=== PATIENT | male | born 1980 | race Caucasian/White ===

== ENCOUNTER 2024-06-30 13:51 | Outpatient (CLI) | payer OTHER, SELFPAY ==
[2024-06-30 19:09] LABS: Basophils Absolute Auto 0.1 K/mm3 (0.0-0.1); Eosinophils Percent Auto 0.6 % (0-4.4); Hematocrit 48.1 % (42.0-52.0); Hemoglobin 15.7 g/dL (14.0-18.0); Immature Granulocyte Absolute 0.01 K/mm3 (0.00-0.031); Immature Granulocyte Percent A 0.1 % (0-0.5); Lymphocytes Absolute Auto 2.21 K/mm3 (0.9-3.2); Lymphocytes Percent Auto 30.9 % (18.3-44.2); Mean Corpuscular HGB Conc 32.6 g/dl (32-36); Mean Corpuscular Hemoglobin 27.9 pg (26-34); Mean Corpuscular Volume 85.6 fl (80-100); Mean Platelet Volume 12.8 fl (7.4-10.4); Monocytes Absolute Auto 0.6 K/mm3 (0.1-0.6); Monocytes Percent Auto 7.7 % (2.6-8.5); Neutrophils Absolute Auto 4.3 K/mm3 (1.3-6.7); Neutrophils Percent Auto 59.7 % (45.5-73.1); Platelet Count Result 208 k/mm3 (150-375); Red Blood Count 5.62 M/mm3 (4.6-6.20); Red Cell Distribution Width 12.1 % (11.5-14.5); White Blood Count 7.2 K/mm3 (4.5-10.0)
[2024-06-30 19:11] LABS: Alanine Aminotransferase 33 U/L (6-50); Albumin Level 4.9 g/dL (3.5-5.1); Alkaline Phosphatase 57 U/L (38-126); Anion Gap 10 mmol/L (4-12); Aspartate Amino Transferase 42 U/L (17-59); Bilirubin,Total 0.8 mg/dL (0.2-1.3); Blood Urea Nitrogen 13 mg/dL (9-20); Calcium 9.4 mg/dL (8.4-10.2); Carbon Dioxide 29 mmol/L (22-30); Chloride 101 mmol/L (98-107); Cholesterol 194 mg/dL (0-200); Estimated Glomerular Filt Rate > 60; Glucose 85 mg/dL (65-110); HDL Direct 61 mg/dL; Potassium 4.4 mmol/L (3.4-5.0); Sodium 140 mmol/L (137-145); Triglycerides 46 mg/dL (<150)
[2024-06-30 19:22] LABS: LDL Cholesterol Direct 93 mg/dL
== END 2024-06-30 13:52 | disposition home or self-care (01) ==
LOC: ANHGOSHLAB 13:52
PROVIDERS: PCP Family Medicine; Visit Provider Family Medicine
DX: Z13.220 Encounter for screening for lipoid disorders (principal); Z13.29 Encounter for screening for other suspected endocrine disorder; Z13.228 Encounter for screening for other metabolic disorders; R53.83 Other fatigue
CPT/HCPCS: 36415; 80053; 80061; 84443; 85025

== ENCOUNTER 2024-09-08 12:53 | Outpatient (CLI) | payer OTHER, SELFPAY | END 2024-09-08 12:54 | disposition home or self-care (01) | LOC: ANHAUDASC 12:54 | PROVIDERS: PCP Family Medicine; Visit Provider Otolaryngology | DX: H90.42 Sensorineural hearing loss, unilateral, left ear, with unrestricted hearing on the contralateral side (principal); H93.12 Tinnitus, left ear | CPT/HCPCS: 92557; 92567 ==

== ENCOUNTER 2024-09-20 07:30 | Outpatient (CLI) | payer OTHER, SELFPAY ==
--- NOTE | ~2024-09-20 | MR_ITS ---
MRI of the brain Clinical History: Left tinnitus Technique: Axial and sagittal T1-weighted images were acquired. These were followed by axial T2-weigh nino, diffusion weighted, gradient, and FLAIR images. Thin cut coronal and axial T1-weighted and T2-we ighted images were performed through the internal auditory canals. Following intravenous administrati on of 16 cc MultiHance gadolinium, T1-weighted fat-sat imaging was performed through the brain in the axial and coronal planes. Thin cut T1-weighted postcontrast imaging was performed through the international account executive al auditory canals in the axial and coronal planes. Findings: There is no abnormal signal in the brain parenchyma. No acute infarct, intracranial hemorrh age, or mass lesion. Ventricles and subarachnoid spaces are unremarkable. Orbits are unremarkable. Paranasal sinuses and m astoid air cells are clear. Major intracranial flow voids are intact. No abnormal mass lesion seen at the internal auditory canals or cerebellopontine angle regions. Sagittal midline structures are intact. No abnormal postcontrast enhancement identified. IMPRESSION: Unremarkable exam. Reviewed, dictated and finalized at location . VERY RN IMPRESSION: Unremarkable exam.
== END 2024-09-20 07:31 | disposition home or self-care (01) ==
PROVIDERS: PCP Family Medicine; Visit Provider Otolaryngology
DX: H93.12 Tinnitus, left ear (principal); H90.42 Sensorineural hearing loss, unilateral, left ear, with unrestricted hearing on the contralateral side; D33.3 Benign neoplasm of cranial nerves
CPT/HCPCS: 70553; A9577

== ENCOUNTER 2025-01-12 09:27 | Outpatient (CLI) | payer OTHER, SELFPAY ==
--- OUTSIDE RECORDS SUMMARY | 2025-01-12 10:17 | XMS_ITS ---
Care Plan - [facility] Created on: January 12, 2025 AICHA TERRY Jones : 1980 Sex: Male Author Organization [facility] Address [address] [place] [address] Phone Care Team Providers Care Electrical Drafter Name Role Phone CATHERINE PETER DO [phone]
--- OUTSIDE RECORDS SUMMARY | 2025-01-12 10:17 | XMS_ITS ---
Author Organization [facility] Address [address] [place] [address] Phone Care Team Providers Care Day Care Center Director Name Role Phone CATHERINE PETER DO [phone] Plan of Treatment Findings Encounter Date Ordered follow-up visit as n eeded with an office visit if symptoms persist or worsen COVID SICK VISIT- NEW PATIENT with ROCIO CUELLAR [employer] OPERATOR-BC 11/21/2022 Last Documented On 3 3:56PM ; [facility] Ordered patient to call if k[place] develops COVID SICK VISIT- NEW PATIENT with ROCIO CUELLAR [facility] 11/21/2022 Last Documented On 3 3:56PM ; [facility] Ordered return to the clinic if condition worsens or new symptoms arise COVID SICK VISIT- NEW PATIENT with ROCIO CUELLAR [employer] OPERATOR-BC 11/21/2022 Last Documented On 3 3:56PM ; [facility] Instructions to patient Go to the emergency room if condition worsens Last Documented On 3 3:50PM ; [facility] Watch for signs/symptoms of infection Last Documented On 3 3:50PM ; [facility] Watch for signs/symptoms of infection, return to the clinic if seen Last Documented On 3 3:50PM ; [facility] Assessments Includes: Assessments for all patient encounters Findings Encounter Date Group A streptococcus: B hem olytic pharyngitis COVID SICK VISIT- NEW PATIENT with ROCIO CUELLAR [employer] OPERATOR-BC 11/21/2022 Last Documented On 3 3:56PM ; [facility] Instructions Includes: Instructions for all patient encounters Instructions to patient Go to the emergency room if condition worsens Last Documented On 3 3:50PM ; [facility] Watch for signs/symptoms of infection Last Documented On 3 3:50PM ; [facility] Watch for signs/symptoms of infection, return to the clinic if seen Last Documented On 3 3:50PM ; [facility] Medical Equipment - Implanted Devices Includes: Current and historical Devices No Medical Equipment Recorded Medications Includes: Current and historical Medications Current Medications (continue as prescribed) Zithromax Z-Bill 250 MG Oral Tablet 11/21/2022 Provider: ROCIO DUARTE Diagnosis: Streptococcal ph aryngitis as directed Last Documented On 3 3:56PM By ROCIO LINCOLN ; [facility] Escitalopram Oxalate 10 MG Oral Tablet 09/19/2022 Pr ovider: Diagnosis: Last Documented On 11/21/2022 3:41PM By Carolyn Deleon CNA ; [facility] clonazePAM 0.5 MG Oral Tablet 08/19/2022 Provider: Diagnosis: Last Documented On 11/21/2022 3:41PM By Carolyn Deleon CNA ; [facility] Medications Administered Includes: Administered Medications in patient's chart No Administered Medications Recorded Results Includes: Results from 01/13/2024 through 01/12/2025 No Results Recorded For Specified Dates History of Present Illness History of Present Illness not supported for this document type No History of Present Illness Recorded Social History Description Last Updated Tobacco non-user 11/21/2022 Last Documented On 3 3:56PM ; [facility] Smoking Status Unknown Medical History Includes: Medical History in patient's chart Description Last Updated Taking OTC medications 11/21/2022 Last Documented On 3 3:56PM ; [facility] Taking OTC pain medication /fever. Using Tylenol 11/21/2022 Last Documented On 3 3:56PM ; [facility] Family History Includes: Family History in patient's chart No Family History Recorded Review of Systems Review of Systems not supported for this document type No Review of Systems Recorded Mental Status No Mental Status Recorded Functional Status No Functional Status Recorded Physical Exam Physical Exam not supported for this document type No Physical Exam Recorded Insurance Includes: Active Insurance Policies Plan Name Member ID Group # Subscriber Relationship Effect renata Dates 1 - [facility] [id number] TERRY Jones OHMS Self Clinical Notes Includes: Signed Clinical Notes starting from 10/06/2022 No Clinical Notes Recorded
--- OUTSIDE RECORDS SUMMARY | 2025-01-12 10:17 | XMS_ITS | Clinical Summary ---
Author Organization [facility] Address [address] [place] [address] Phone Care Team Providers Care Events Manager Name Role Phone CATHERINE PETER DO [phone] Reason for Visit and Chief Complaint The Chief Complaint is: PT C/O SORE THROAT Plan of Treatment - Return to the clinic if condition worsens or new symptoms arise - Last Documented On 11/21/2022 3:56PM ; [facility] - Follow-up visit as needed with an office visit if symptoms persist or worsen - Last Documented On 11/21/2022 3:56PM ; [facility] - Patient to call if problem develops - Last Documented On 11/21/2022 3:56PM ; [facility] Instructions to patient Go to the emergency room if condition worsens Last Documented On 3 3:50PM ; [facility] Watch for signs/symptoms of infection Last Documented On 3 3:50PM ; [facility] Watch for signs/symptoms of infection, return to the clinic if seen Last Documented On 3 3:50PM ; [facility] Assessments Includes: Assessments from this encounter Findings - Group A streptococcus: B hemolytic pharyngitis - Last Documented On 11/21/2022 3:56PM ; [facility] Instructions Includes: Instructions from this encounter Instructions to patient Go to the emergency room if condition worsens Last Documented On 3 3:50PM ; [facility] Watch for signs/symptoms of infection Last Documented On 3 3:50PM ; [facility] Watch for signs/symptoms of infection, return to the clinic if seen Last Documented On 3 3:50PM ; [facility] Medical Equipment - Implanted Devices Includes: Current Devices No Medical Equipment Recorded Medications Includes: Medications discussed during this encounter and other current Medications New / Renewed during this visit ROCIO LINCOLN on 11/21/2022 Zithromax Z-Bill 250 MG Oral Tablet Provider: ROCIO LINCOLN 5 day supply: 6 tablet, 0 refills Diagnosis: Streptococcal pharyngitis as directed Pharmacy: [facility] - [address] , [facility], [phone] - Last Documented On 3:56PM By ROCIO LINCOLN ; [facility] Current Medications (continue as prescribed) Escitalopram Oxalate 10 MG Oral Tablet 09/19/2022 Pr ovider: Diagnosis: Last Documented On 11/21/2022 3:41PM By Carolyn Deleon CNA ; [facility] clonazePAM 0.5 MG Oral Tablet 08/19/2022 Provider: Diagnosis: Last Documented On 11/21/2022 3:41PM By Carolyn Deleon CNA ; [facility] Medications Administered Includes: Administered Medications from this encounter No Administered Medications Recorded Vital Signs Includes: Vital Signs from this encounter Vital Name 11/21/2022 03:42P Blood Pressure Sitting L 114/64 Pulse Rate-Sitting (bpm) 90 Respiration Rate (breaths/min) 20 Temp-Oral (F) 100.1 Height (in) 70 Weight (lb) 175 Body Mass Index 25.1 Body Surface Area 2 Oxygen Saturation (%) 98 Last Documented: On 11/21/2022 3:44PM ; [facility] Results Includes: Results discussed during this encounter Group A strep [facility] Ordered by ROCIO CUELLAR MACHINE PIE MAKER- on Collected: Reported: 11/21/2022 15:46 Last Documented On 3:51PM ; [facility] Reviewed on 11/21/2022; All test results are final unless otherwise noted. Rapid Strep POSITIVE A (Abnormal) Last Documented On 3 3:49PM ; [facility] LOT # AND EXP. DATE [id number] 02/15/24 N (Normal) Last Documented On 3 3:49PM ; [facility] INT. QC ACCEPTABLE? YES N (Normal) Last Documented On 3 3:49PM ; [facility] History of Present Illness Includes: History of Present Illness from this encounter HPI TERRY MULLEN is a 42 year old male. - Allergy list reviewed - Medication list reviewed - Fever - Feeling fine - Not feeling tired - No chills - Do not shake the whole body - Headache - No sinus pain - No neck pain - No eye symptoms - Sore throat constantly - Triggered by swallowing - No ear symptoms - No nasal discharge - No postnasal drip - No nasal passage blockage (stuffiness) - No sneezing - No nasal itching - No chest pain or discomfort - No dyspnea - No cough - No wheezing - Decreased appetite - No heartburn - No nausea - No vomiting - No abdominal pain - No diarrhea - No skin symptoms pt to clinic for above symptoms x 2 days kids have strep Social History Description Last Updated Tobacco non-user 11/21/2022 Last Documented On 3 3:56PM ; [facility] Smoking Status Unknown Procedures and Surgical History Includes: Procedures from this encounter Procedures Code Diagnosis Performing Provider Service L ocation Service Date continue current medication Last Documented On 3 3:50PM ; [facility] the options include close observation Last Documented On 3 3:50PM ; [facility] watch for signs/symptoms of infection Last Documented On 3 3:50PM ; [facility] watch for signs/symptoms of infection, r eturn to the clinic if seen Last Documented On 3 3:50PM ; [facility] Pt / family were notified th at strep pharyngitis testing was POSITIVE. Strep pharyngitis etiology, natural course, possible complications, and treatment options were discussed. Pt will start antibiotic therapy as ordered. Discussed with pt /family that pt is contagious for 24 hours after start of antibiotic therapy and the importance of completing full course of antibiotic therapy. Recommended replacement of oral care products after three days of antibiotic therapy to reduce risk reinoculation with strep. Observe for signs/symptoms of strep in pt contacts. Discussed with pt /family expected course of improvement. Pt may return to activities after completing 24 hours of antibiotic therapy and feel well. Family to call back if not better in 3 days or worsens Last Documented On 3 3:50PM ; [facility] Pt to use OTC fever/pain product as need ed per product instruction.~ Last Documented On 3 3:50PM ; [facility] plan of care reviewed and agreed to by t he patient Last Documented On 3 3:49PM ; [facility] use of tobacco assessment performed 1000F Last Documented On 3 3:42PM ; [facility] Increase fluids Last Documented On 3 3:50PM ; [facility] Clinical summary provided to patient Last Documented On 3 3:50PM ; [facility] Medical History Includes: Medical History addressed during this encounter Description Last Updated Taking OTC medications 11/21/2022 Last Documented On 3 3:56PM ; [facility] Taking OTC pain medication / fever. Usin g Motrin 11/21/2022 Last Documented On 3 3:56PM ; [facility] Taking OTC pain medication /fever. Using Tylenol 11/21/2022 Last Documented On 3 3:56PM ; [facility] Family History Includes: Family History addressed during this encounter No Family History Recorded Review of Systems Includes: Review of Systems from this encounter Systemic: Fever and chills. Otolaryngeal: Sore throat. Mental Status Includes: Mental Status from this encounter No Mental Status Recorded Functional Status Includes: Functional Status from this encounter No Functional Status Recorded Physical Exam Includes: Physical Exam from this encounter Encounters Encounter Provider Location Date Check-In Time Check-Out Time Diagnosis COVID SICK VISIT- NEW PATIENT ROCIO LINCOLN [facility] 11/22/19 23 3:25PM 3:56PM Pharyngitis Streptococcus, Group A: Beta Hemolytic Insurance Includes: Active Insurance Policies Plan Name Member ID Group # Subscriber Relationship Effect renata Dates 1 - [facility] [id number] TERRY Jones [facility] Self Clinical Notes Includes: Clinical Notes from this encounter * Progress note Date Encounter Last Documented by 11/21/2022 COVID SICK VISIT- NEW PATIENT [facility] st documented on 11/21/2022; 3:56 PM, ROCIO LINCOLN; [facility] Chief Complaint The Chief Complaint is: PT C/O SORE THROAT. History of Present Illness TERRY MULLEN is a 42 year old male. - Allergy list reviewed - Medication list reviewed - Fever - Feeling fine - Not feeling tired - No chills - Do not shake the whole body - Headache - No sinus pain - No neck pain - No eye symptoms - Sore throat constantly - Triggered by swallowing - No ear symptoms - No nasal discharge - No postnasal drip - No nasal passage blockage (stuffiness) - No sneezing - No nasal itching - No chest pain or discomfort - No dyspnea - No cough - No wheezing - Decreased appetite - No heartburn - No nausea - No vomiting - No abdominal pain - No diarrhea - No skin symptoms pt to clinic for above symptoms x 2 days kids have strep Current Medication - clonazePAM 0.5 MG Oral Tablet 90 days, 0 refills - Escitalopram Oxalate 10 MG Oral Tablet 90 days, 0 refills Past Medical/Surgical History Reported: Medications: Taking OTC pain medication / fever. Using Motrin, uxhx-mah-xldytxo /fever. Using Tylenol, and gmge-vtn-mhrrsgs medications. Social History Tobacco use: Tobacco non-user. Review Of Systems Systemic: Fever and chills. Otolaryngeal: Sore throat. Physical Findings - Vitals taken 11/21/2022 03:42 pm BP-Sitting L 114/64 mmHg Pulse Rate-Sitting 90 bpm Respiration Rate 20 per min Temp-Oral 100.1 F Height 70 in Weight 175 lbs Body Mass Index 25.1 kg/m2 Body Surface Area 2 m2 Oxygen Saturation 98 % General Appearance: - Awake. - Alert. - Well developed. - Well nourished. - In no acute distress. Eyes: General/bilateral: Pupils: - PERRLA. Ears: Right Ear: Tympanic Membrane: - Normal. Left Ear: Tympanic Membrane: - Normal. Nose: General/bilateral: Discharge: - No nasal discharge. Sinus Tenderness: - No sinus tenderness. Pharynx: Oropharynx: - Tonsils showed abnormalities. - Tonsils were erythematous. - Inflamed. - Soft palate was normal. - Tonsils were not enlarged. - Tonsils showed no exudate. Mucosal: - Pharynx showed no accumulation of mucous. Lymph Nodes: - Lymph nodes: - Anterior cervical lymph nodes were enlarged on the right. - Anterior cervical lymph nodes were enlarged on the left. - Tender lymph nodes. Lungs: - Clear to auscultation. Cardiovascular: Heart Rate And Rhythm: - Normal. Abdomen: Auscultation: - Bowel sounds were normal. Palpation: - No direct tenderness in the abdomen. Skin: - Mucous membranes were not dry. Tests - Test: Group A strep Report Date: 11/21/2022 Rapid Strep POSITIVE Abnormal LOT # AND EXP. DATE [id number] 02/15/24 Normal INT. QC ACCEPTABLE? YES Normal Assessment - Group A streptococcus: B hemolytic pharyngitis Therapy - The options include close observation. - Increase fluids. - Watch for signs/symptoms of infection return to the clinic if seen. - Continue current medication. - Clinical summary provided to patient. - Plan of care reviewed and agreed to by the patient. Pt / family were notified that strep pharyngitis testing was POSITIVE. Strep pharyngitis etiology, natural course, possible complications, and treatment options were discussed. Pt will start antibiotic therapy as ordered. Discussed with pt /family that pt is contagious for 24 hours after start of antibiotic therapy and the importance of completing full course of antibiotic therapy. Recommended replacement of oral care products after three days of antibiotic therapy to reduce risk reinoculation with strep. Observe for signs/symptoms of strep in pt contacts. Discussed with pt /family expected course of improvement. Pt may return to activities after completing 24 hours of antibiotic therapy and feel well. Family to call back if not better in 3 days or worsens. Pt to use OTC fever/pain product as needed per product instruction. . Counseling/Education - Go to the emergency room if condition worsens Discussed Finish Full prescription of antibiotics. Eat yogurt and BRAT diet if diarrhea develops Drink 8-8oz glasses of water a day. [place] teeth twice a day Get a new tooth brush and new tooth paste day 4 of antibiotic therapy Plan StartCited - Streptococcal pharyngitis In office procedures/*Clia Waived Labs: Rapid Strep Test Zithromax Z-Bill 250 MG tablet as directed, 5 days, 0 refills EndCited - Return to the clinic if condition worsens or new symptoms arise - Follow-up visit as needed with an office visit if symptoms persist or worsen - Patient to call if problem develops Practice Management Use of tobacco assessment performed. Health Reminders - Assess BMI satisfied 11/21/2022. - Assess Tobacco Use satisfied 11/21/2022.
--- OUTSIDE RECORDS SUMMARY | 2025-01-12 10:17 | XMS_ITS | Clinical Summary ---
Author Organization [facility] Address [address] [place] [address] Care Team Providers Care On Car Supervisor Name Role Phone Unavailable Primary Care Provider Unavailabl e Social History Tobacco Use Types Packs/Day Years Used Date Smoking Tobacco: Never Assessed Sex and Gender Information Value Date Recorded Sex Assigned at Not on file Legal Sex Male 7:35 PM CDT Gender Identity Not on file Sexual Orientation Not on file Plan of Treatment Health Maintenance Due Date Last Done Comments Annual Physical 1985 Hepatitis C 2000 DTaP, Tdap and Td Vaccines ( 1 - Tdap) 2001 Hepatitis B Vaccines (1 of 3 - 19+ 3-dose series) 2001 COVID-19 Vaccine (2023-2 5 season) 2024 HPV Vaccines Aged Out No longer eligi ble based on patient's age to complete this topic Meningococcal B Vaccine Aged Out No l onger eligible based on patient's age to complete this topic Meningococcal Vaccine Aged Out No concepcion marilu eligible based on patient's age to complete this topic Pneumococcal Vaccine: Pediat rics (0 to 5 Years) and At-Risk Patients (6 to 49 Years) Aged Out No longer eligible b ased on patient's age to complete this topic RSV Immunizations Under 20 Months Aged Out No longer eligible based on patient's age to complete this topic
[2025-01-12 12:20] LABS: Vitamin D 25 Hydroxy 35.6 ng/mL
[2025-01-12 12:29] LABS: Prostate Specific Antigen 0.3 ng/mL (< OR = 4.0)
[2025-01-12 13:04] LABS: Folic Acid 10.4 ng/mL (2.76->20)
== END 2025-01-12 09:28 | disposition home or self-care (01) ==
LOC: ANHGOSHLAB 09:28
PROVIDERS: PCP Nurse Practitioner Family; Visit Provider Nurse Practitioner Family
DX: H90.5 Unspecified sensorineural hearing loss (principal); Z12.5 Encounter for screening for malignant neoplasm of prostate; R39.198 Other difficulties with micturition; E55.9 Vitamin D deficiency, unspecified
CPT/HCPCS: 36415; 82306; 82607; 82746; 84153; G0103

== ENCOUNTER 2025-07-13 09:26 | Outpatient (CLI) | payer OTHER, SELFPAY ==
--- OUTSIDE RECORDS SUMMARY | 2025-07-13 10:15 | XMS_ITS | Clinical Summary ---
Author Organization [facility] Address [address] [place] [address] Care Team Providers Care Petrologist Name Role Phone Unavailable Primary Care Provider [...] of 3 - 19+ 3-dose series) 2001 HPV Vaccines (1 - 3-dose SCD M series) 2009 COVID-19 Vaccine ( - 2024-2 6 season) 2025 Influenza Adult (#1) 2025 Hepatitis A Vaccines Aged Out No long er eligible based on patient's age to complete [...]
[2025-07-13 13:20] LABS: Anion Gap 6 mmol/L (4-12); Blood Urea Nitrogen 16 mg/dL (9-20); Calcium 9.0 mg/dL (8.4-10.2); Carbon Dioxide 29 mmol/L (22-30); Chloride 103 mmol/L (98-107); Cholesterol 195 mg/dL (0-200); Estimated Glomerular Filt Rate > 60; Glucose 86 mg/dL (65-110); HDL Direct 58 mg/dL; Potassium 4.3 mmol/L (3.4-5.0); Sodium 138 mmol/L (137-145); Triglycerides 46 mg/dL (<150)
[2025-07-13 13:56] LABS: Thyroid Stimulating Hormone 1.140 uIU/mL (0.465-4.680)
== END 2025-07-13 09:27 | disposition home or self-care (01) ==
LOC: ANHGOSHLAB 09:27
PROVIDERS: PCP Family Medicine; Visit Provider Nurse Practitioner Family
DX: F32.1 Major depressive disorder, single episode, moderate (principal); E55.9 Vitamin D deficiency, unspecified; Z13.220 Encounter for screening for lipoid disorders
CPT/HCPCS: 36415; 80048; 80061; 84443